=== PATIENT | male | born 1935 | race Caucasian/White ===

== ENCOUNTER → 2017-05-30 | Outpatient (CLI) | payer OTHER | LOC: FIMAGING 08:29 | DX: R29.2 Abnormal reflex (principal); M50.31 Other cervical disc degeneration, high cervical region; M46.92 Unspecified inflammatory spondylopathy, cervical region; M48.02 Spinal stenosis, cervical region; M46.93 Unspecified inflammatory spondylopathy, cervicothoracic region; M48.03 Spinal stenosis, cervicothoracic region ==

== ENCOUNTER 2017-09-25 21:13 | Emergency (ER) | payer OTHER ==
[2017-09-25] MEDS ORDERED: MAG HYDROX/AL HYDROX/SIMETH 30 ML UDCUP PO ONE (22:13)
[2017-09-25] MEDS ORDERED: LIDOCAINE 2% VISCOUS 15 ML UDCUP PO ONE (22:13)
--- NOTE | 2017-09-25 22:16 | EDPHY ---
H & P Time Seen by Provider: 09/25/17 21:50 HPI/ROS: CHIEF COMPLAINT: Pill stuck in my throat HISTORY OF PRESENT ILLNESS: Patient is an 82-year-old male who presents to the emergency department stating a pill got stuck in his throat. He describes the sensation of having a foreign body in his upper throat. He is able to swallow and handle his secretions. He is able to drink water. He describes mild discomfort. No shortness of breath or cough. No nausea or vomiting. No previous episodes of esophageal foreign body. REVIEW OF SYSTEMS: My complete review of systems is negative except as mentioned in the HPI. Past Medical/Surgical History: Includes hypercholesterolemia, hypothyroidism Smoking Status: Former smoker Physical Exam: 36.7, 115/70, 60, 16, 94% on room air GENERAL: Well-appearing, in no acute distress, alert. HEENT: Eyes normal to inspection, normal pharynx, no signs of dehydration. NECK: No thyromegaly, no lymphadenopathy, supple. No stridor. RESPIRATORY: Clear to auscultation bilaterally, no rales, rhonchi or wheezing. CVS: Regular rate and rhythm, no rubs, murmurs, or gallops. ABDOMEN: Soft, nontender, nondistended, no organomegaly. BACK: Normal to inspection, no CVA tenderness. SKIN: Normal color, no rash, warm, dry. No pallor. EXTREMITIES: No pedal edema, no calf tenderness, no Homans sign or cords, no joint swelling. NEURO/PSYCH: Alert and oriented x3, normal mood and affect, normal motor sensory exam. No obvious cranial nerve deficit. Constitutional: Initial Vital Signs Temperature (C) 36.7 C 09/25/17 21:25 Heart Rate 60 09/25/17 21:25 Respiratory Rate 16 09/25/17 21:25 Blood Pressure 115/70 09/25/17 21:25 O2 Sat (%) 94 09/25/17 21:25 O2 Delivery Mode Room Air Allergies/Adverse Reactions: No Known Allergies Allergy (Unverified 10/20/15 19:32) Home Medications: Medication Instructions Recorded Aspirin EC [Aspirin EC 81 mg (*)] 81 mg PO HS 10/20/15 Colestipol HCl [Colestid (*)] 1 gm PO HS 10/20/15 Cyanocobalamin [Vitamin B12 (*)] 100 mcg PO DAILY 10/20/15 Ezetimibe [Zetia 10 MG (*)] 10 mg PO DAILY 10/20/15 Folic Acid 100 mcg PO DAILY 10/20/15 Gabapentin [Neurontin 100 MG (*)] 300 mg PO HS 10/20/15 Glucosam/Chondr/Collagn/Hyalur 1 each PO BID 10/20/15 [Glucosamine & Chondroitin Cap] Levothyroxine [Synthroid 75 mcg 75 mcg PO HS 10/20/15 (*)] Niacin ER [Niaspan 1000 mg (*)] 2,000 mg PO HS 10/20/15 [place]-3 Fatty Acids [Fish Oil 1000 2,000 mg PO DAILY@18 10/20/15 mg (*)] [place]-3 Fatty Acids [Fish Oil 1000 3,000 mg PO DAILY 10/20/15 mg (*)] Gabapentin [Neurontin 300 MG (*)] 300 mg PO HS #0 cap 10/22/15 Glucosamine/Chondroitin 1 each PO BID #0 cap 10/22/15 [Glucosamine/Chondroitin (*)] Medical Decision Making ED Course/Re-evaluation: The patient was given a GI cocktail. He subsequently swallowed carbonated liquid. On recheck he felt like the obstruction had resolved. He has no more pain with swallowing. Initially after taking the GI cocktail he still felt as though the pill was lodged in his throat but he had no discomfort. He then felt as though the pill past. He has no complaints of shortness of breath. I discussed possible etiologies. I discussed an abrasion with symptoms resolving due to the GI cocktail. I also discussed the possibility of the pills still being stuck. He will follow up with ENT. He is given warnings prior to leaving. Differential Diagnosis: My differential includes but is not limited to foreign body sensation, food impaction, pill impaction, esophageal disruption - Data Points Medications Given: Discontinued Medications Al Hydroxide/Mg Hydroxide (Maalox Susp) 30 ml PO ONCE ONE Stop: 09/25/17 22:14 Last Admin: 09/25/17 22:20 Dose: 30 ml Lidocaine (Lidocaine 2% Viscous) 15 ml PO ONCE ONE Stop: 09/25/17 22:14 Last Admin: 09/25/17 22:20 Dose: 15 ml Departure - Departure Disposition: Home, Routine, Self-Care Clinical Impression: Esophageal foreign body Condition: Good Instructions: Esophageal Foreign Body (ED) Additional Instructions: Return with increasing pain, difficulty swallowing, shortness of breath, persistent coughing or any other concerns. Referrals: Abhishek Bailey MD [Primary Care Provider] - As per Instructions Maksim Wolf MD [Medical Doctor] - 3-4 days, if not improved
[2017-09-25 22:58] VITALS: BP 118/77
== END 2017-09-25 23:00 | disposition home or self-care (01) ==
DX: T18.108A Unspecified foreign body in esophagus causing other injury, initial encounter (principal); Z79.82 Long term (current) use of aspirin; Z87.891 Personal history of nicotine dependence; X58.XXXA Exposure to other specified factors, initial encounter

== ENCOUNTER 2018-05-13 16:13 | Inpatient (IN) | payer OTHER ==
[2018-05-13] MEDS ORDERED: NS 1,000 ML IV ONE (16:18)
--- NOTE | 2018-05-13 16:24 | EDPHY ---
H & P Time Seen by Provider: 05/13/18 16:21 HPI/ROS: CHIEF COMPLAINT: Head laceration HISTORY OF PRESENT ILLNESS: Patient is a 80-year-old man who fell outside of the store and hit his head. He has a laceration to his left forehead. It is unclear whether not he fainted or slipped. According to paramedics he is perseverating. No neck pain. Moving all extremities without difficulty. He was ambulatory at the scene. He does have a history of coronary artery disease on heart scan as well as prostate cancer. He is not on any blood thinners. He denies chest pain or shortness of breath. Severity: Moderate Modifying factors: None REVIEW OF SYSTEMS: Constitutional: denies: chills, fever, recent illness, recent injury EENTM: denies: blurred vision, double vision, nose congestion Respiratory: denies: cough, shortness of breath Cardiac: denies: chest pain, irregular heart rate, lightheadedness, palpitations Gastrointestinal/Abdominal: denies: abdominal pain, diarrhea, nausea, vomiting, blood streaked stools Genitourinary: denies: dysuria, frequency, hematuria, pain Musculoskeletal: See HPI Skin: See HPI Neurological: See HPI denies: headache, numbness, paresthesia, tingling, dizziness, weakness Hematologic/Lymphatic: denies: blood clots, easy bleeding, easy bruising Immunologic/allergic: denies: HIV/AIDS, transplant 10 systems reviewed and negative except as noted Vital signs reviewed normal Patient is alert not anxious or lethargic and in no distress No cervical collar in place HEAD: Laceration left forehead no raccoon eyes, no Randolph sign. NECK: is nontender and has painless range of motion, trachea is midline, EYES: pupils equal round reactive to light and accommodating, extraocular muscles are intact no palsy or entrapment, no subconjunctival hemorrhage ENT: Normal external inspection, airway intact, no dental or oral injuries, no clotted nasal blood, no septal hematoma, no hemotympanum CARDIOVASCULAR: heart sounds normal, not tachycardic or bradycardic, Chest is non-tender no rib tenderness no palpable fracture, no crepitus, no subcutaneous emphysema RESPIRATORY: no splinting, no paradoxical movements, gross sounds normal, no wheezes no rales no rhonchi, no respiratory distress ABDOMEN: Abdomen is nontender in all 4 quadrants no guarding no rebound, no distention, no hernias, no masses or bruits. GENITAL/RECTAL: Normal external inspection, Stable pelvis NEUROLOGIC/PSYCH: Slightly confused but oriented to person and place a day cranial nerves normal as assessed, face symmetrical, sensation normal, motor grossly normal, some perseveration, cranial nerves II through XII intact normal reflexes Brijesh Coma score: 14 SPEECH disoriented 4 MOTOR normal 6 SKIN: Laceration forehead no ecchymosis, nondiaphoretic. BACK: No CVA tenderness, no vertebral point tenderness, no muscle spasm normal range of motion EXTREMITIES: Atraumatic, pelvis stable, nontender able to bear weight, no pulse deficit, normal range of motion, normal color and temperature Source: Patient, EMS, Old records Exam Limitations: Clinical condition - Medical/Surgical History Hx Asthma: No Hx Chronic Respiratory Disease: No Hx Diabetes: No Hx Cardiac Disease: No Hx Renal Disease: No Hx Cirrhosis: No Hx Alcoholism: No Hx HIV/AIDS: No Hx Splenectomy or Spleen Trauma: No Other PMH: hypercholesteremia - Family History Significant Family History: No pertinent family hx - Social History Smoking Status: Former smoker Alcohol Use: None Constitutional: Initial Vital Signs Heart Rate 80 05/13/18 16:16 Blood Pressure 163/94 H 05/13/18 16:16 O2 Delivery Mode Room Air Allergies/Adverse Reactions: No Known Allergies Allergy (Unverified 10/20/15 19:32) Home Medications: Medication Instructions Recorded Aspirin EC [Aspirin EC 81 mg (*)] 81 mg PO HS 10/20/15 Colestipol HCl [Colestid (*)] 2 gm PO BID 10/20/15 Ezetimibe [Zetia 10 MG (*)] 10 mg PO DAILY 10/20/15 Levothyroxine [Synthroid 75 mcg 75 mcg PO HS 10/20/15 (*)] Niacin ER [Niaspan 1000 mg (*)] 2,000 mg PO HS 10/20/15 [place]-3 Fatty Acids [Fish Oil 1000 2,000 mg PO BID 10/20/15 mg (*)] C/E/Zn/Cu/OM3/DHA/EPA/LUT/ZEAX 2 each PO DAILY 05/13/18 [Preservision Areds 2 Softgel] Carbidopa/Levodopa 1.5 each PO TID@0630,12,5920 05/13/18 [Carbidopa-Levodopa 25-100 Tab] Cyanocobalamin [Vitamin B12 (*)] 1,000 mcg PO DAILY 05/13/18 Medical Decision Making - Diagnostics EKG Interpretation: An EKG obtained and was read and documented in trace view. Please see trace view for full reading and report. Junctional rhythm the rate of 68. No previous for comparison. Imaging: Discussed imaging studies w/ call taker Radiologist Procedures: Procedure: Laceration repair. Verbal consent was obtained from the patient. The 3 cm forehead laceration was anesthetized with 1% lidocaine with epi and bicarbonate locally infiltrated. The wound was irrigated copiously according to protocol, draped and explored to its base. It was approximately 1 cm deep. There were no deep structures involved. No tendon, nerve, vascular oozing. No foreign body was identified. The wound was repaired with deep sutures 2.0 Vicryl with a [id number] across the bleeding vessel as well as 9 superficial running sutures 5.0 Prolene. The wound repair was complex with multiple layers and margin revision and hemorrhage control. The procedure was performed by myself. A dressing was then placed with sterile gauze and bacitracin. ED Course/Re-evaluation: 4:30 p.m. Family is here and tells that the patient has Parkinson's and frequent dizzy spells. 5:30 p.m. Patient tolerated suture repair. Family is here. They state that they have never heard of any heart arrhythmia in the past. I spoke with Dr. Pace and will admit to the medical service. I have paged Cardiology as well as Trauma service because he is initially limited +. He seems to have isolated head injury. Discussed the case with Dr. Cronin who will come evaluate. Discussed the case with Dr. Valladares is who will consult. 6:12 p.m. I discussed the case Samson Romero who will admit. Differential Diagnosis: Partial list of the Differential diagnosis considered include but were not limited to; laceration, syncope, and although unlikely based on the history and physical exam, I also considered fracture, intracranial injury, neck injury , thoracic injury, extremity injury. - Data Points Laboratory Results: Laboratory Results 05/13/18 16:28 05/13/18 16:28 Medications Given: Acetaminophen (Tylenol) 650 mg PO Q4HRS PRN PRN Reason: Pain, Mild/Fever, Can Take PO Stop: 11/09/18 18:36 Last Admin: 05/14/18 09:09 Dose: 650 mg Aspirin Buffered (Aspirin Ec) 81 mg PO HS ADELIA Stop: 11/09/18 20:59 Last Admin: 05/13/18 21:29 Dose: 81 mg Carbidopa/Levodopa (Sinemet) 1.5 tab PO TID@0630,1200,1730 ADELIA Stop: 11/09/18 21:59 Last Admin: 05/14/18 13:05 Dose: 1.5 tab Colestipol HCl (Colestid) 2 gm PO BID@1000,2200 ADELIA Stop: 11/09/18 21:59 Last Admin: 05/14/18 10:21 Dose: 2 gm Ezetimibe (Zetia) 10 mg PO DAILY ADELIA Stop: 11/10/18 08:59 Last Admin: 05/14/18 08:41 Dose: 10 mg Levothyroxine Sodium (Synthroid) 75 mcg PO HS ADELIA Stop: 11/09/18 20:59 Last Admin: 05/13/18 21:29 Dose: 75 mcg Multivitamins/Minerals (Preservision Areds2 Formula) 2 each PO DAILY ADELIA Stop: 11/10/18 08:59 Last Admin: 05/14/18 08:41 Dose: 2 each Niacin (Niaspan) 2,000 mg PO HS ADELIA Stop: 11/09/18 20:59 Last Admin: 05/13/18 21:30 Dose: 2,000 mg Vitamin B Complex (Vitamin B12) 1,000 mcg PO DAILY ADELIA Stop: 11/10/18 08:59 Last Admin: 05/14/18 08:41 Dose: 1,000 mcg Discontinued Medications Sodium Chloride (Ns) 1,000 mls @ 0 mls/hr IV ONCE ONE; Wide Open PRN Reason: Protocol Stop: 05/13/18 16:19 Last Admin: 05/13/18 16:45 Dose: 1,000 mls Potassium Chloride/Sodium Chloride (Ns W/ 20 Kcl/L) 1,000 mls @ 75 mls/hr IV CONT ADELIA Stop: 11/09/18 18:44 Last Admin: 05/13/18 21:32 Dose: 1,000 mls Point of Care Test Results: Chemistry 05/13/18 16:33 POC Troponin I 0.00 ng/mL ng/mL (0.00-0.08) Departure - Departure Disposition: [facility] Inpatient Acute Clinical Impression: Junctional cardiac arrhythmia Forehead laceration Qualifiers: Encounter type: initial encounter Qualified Code(s): S01.81XA - Laceration without foreign body of other part of head, initial encounter Condition: Fair
[2018-05-13 16:33] LABS: PLATELET COUNT 193 10^3/uL (150-400)
[2018-05-13 16:47] LABS: INR 1.06 (0.83-1.16)
--- NOTE | 2018-05-13 16:56 | CPEKG ---
Test Reason : OPEN Blood Pressure : / mmHG Vent. Rate : 068 BPM Atrial Rate : 000 BPM P-R Int : 276 ms QRS Dur : 173 ms QT Int : 473 ms P-R-T Axes : 000 -83 073 degrees QTc Int : 504 ms Junctional rhythm Vent pre-excitat'n(WPW), left acces'y pathway Confirmed by Tomer Sanford ([id number]) on 05/13/2018 4:55:26 PM Referred By: Tomer Sanford Confirmed By:Tomer Sanford
[2018-05-13] MEDS ORDERED: ONDANSETRON DISINTEGRATING 4 MG TAB PO PRN (18:37)
[2018-05-13] MEDS ORDERED: oxyCODONE IR 5 MG TAB PO PRN (18:37)
[2018-05-13] MEDS ORDERED: ONDANSETRON 4 MG/2 ML VIAL IVP PRN (18:37)
[2018-05-13] MEDS ORDERED: NS W/ 20 KCl/L 1,000 ML IV SCH (18:45)
[2018-05-13] MEDS: ACETAMINOPHEN 325 MG TAB PO PRN (19:43)
--- NOTE | 2018-05-13 19:58 | GHP ---
DATE OF ADMISSION: 05/13/2018 REASON FOR ADMISSION: Syncope. HISTORY OF PRESENT ILLNESS: Mr. Herron is an 83-year-old male who was in [place] today and fell and struck his head. He does not recall a specific reason for falling. He hit his head, regained c onsciousness, was brought to the ER for evaluation. On the ER gurney, he is currently comfortable. Sutures to his left temporoparietal region have been placed. He denies neck pain, shortness of breat h, chest pain or palpitations. He struck his elbow, but this seems to be minimally symptomatic at th is point. His daughters note he has had a couple of lightheaded or dizzy spells over the past week o r so. He has not had new medication changes. He has been on the same Parkinson's Sinemet, carbidopa -levodopa combination for, he would say, the past year. He typically walks 45-[address] many days per week without much symptomatology until perhaps the last couple of days, if not w mentasta. He has not had chest pain. No GI distress. No change in oral hydration status. He has been m aking a marked effort to increase his overall water consumption. Urinary output has been brisk. No other unusual features. PAST MEDICAL HISTORY: Notable for Parkinson disease with treatment for the past year, history of div erticulitis, high cholesterol, allergic rhinitis, hypothyroid, erectile difficulties, atherosclerosis by heart scan, history of bronchitis, vitamin D deficiency, microscopic hematuria, history of prosta te cancer, intermittent low back pain and arthritis, AAA without rupture. CURRENT MEDICATIONS: 2000 mg niacin daily, Zetia 10 mg daily, colchicine p.r.n. gout, Sinemet 10/100 1.5 tablets three times daily, vitamin D 5000 units daily, aspirin 81 mg daily, fish oil 2 g twice a day, levothyroxine 75 mcg daily, B12 1000 mcg p.o. daily, multivitamins. SURGICAL HISTORY: Knee replacement 2009, prostatectomy 2010, rotator cuff repair 2004, hernia repair 2011, prostatectomy perhaps was 2006 as opposed to 2010. Prior hospitalization for cellulitis in involving left lower extremity. He has 4 living children, 3 in the area. He consumes coffee on a regular basis. He is active with walking. 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 He does not smoke. FAMILY HISTORY: Father with known heart disease. Mother , hypertension, stroke. IMMUNIZATIONS: Up to date, including flu shot this year. REVIEW OF SYSTEMS: GENERAL: He denies headache aside from area in question from fall. HEENT: No h ead pains. No visual changes. Underlying hearing loss is a known challenge, which is treated with h earing aids with good success. Chronic nasal and sinus symptoms are unchanged. No acute dental cond itions. NECK: No change with difficulty with moving his neck. LUNGS: He denies shortness of breat h, cough, wheeze or congestion. HEART: He denies awareness of chest pain, palpitations, or cardiac rhythm irregularity. ABDOMEN: No nausea or vomiting. No stomach pain. No bowel habit changes. : No acute urinary changes. EXTREMITIES: Left elbow acutely sore from fall. Otherwise, no acute m usculoskeletal complaints. SKIN: No recent skin abnormality aside from trauma from the fall today. NEUROLOGIC: He has not had peculiar swelling, tremor has been improved, as well as ambulation ease with the effect of the Sinemet, which is corroborated by his daughters. PHYSICAL EXAM: VITAL SIGNS: Initial blood pressure 163/94, 2nd check 144/78, heart rate in the 60s to 70s, respiratory rate 16, saturation 97% on room air, temperature 36.6. GENERAL: Pleasant male, somewhat hard of hearing. Resting comfortably on the gurney. HEENT: He has evidence of suture repa ir of laceration to left temporal region. He has evidence of prior cataract surgery. Pupils otherwi se symmetric. Oropharynx benign. NECK: Neck range of motion is intact. LUNGS: Clear without crac kles, wheeze or congestion. HEART: Regular rhythm. No murmur appreciated in the ER gurney setting. Rhythm does vacillate between normal PQRST sinus rhythm to a junctional rhythm with brief episode o f tachycardia briefly captured on the monitor. ABDOMEN: Positive bowel sounds. Soft, nontender, no ndistended. SKIN: Warm, dry, intact. EXTREMITIES: Trace edema to lower extremities. NEUROLOGIC: He follows commands without difficulty. No evidence of weakness. LABORATORY DATA: CT head and neck without acute abnormality. No evidence of intracranial hemorrhage . EKG junctional rhythm was captured. Metabolic panel grossly unremarkable. Magnesium level has no t yet been checked. CBC is unremarkable. INR 1.06, ethanol level undetectable. ASSESSMENT: 1. Syncopal episode. Trauma consult was had by Dr. Cronin. Sutures have been placed. No other unto varela findings noted. We will follow. 2. Syncopal episode. Suspect cardiac dysrhythmia, given findings on EKG, observation monitor and de scription of recent lightheaded or dizzy symptoms over the past week or so. Will admit, place on tel emetry. We will obtain an echocardiogram. I have notified Dr. Acevedo who will see the patient in morning unless his symptoms change tonight. 3. Hyperlipidemia. Continue his current regimen. 4. Atherosclerosis. No evidence of overt symptomatology based on exertion. 5. Parkinson's, medicines have been stable. Continue with his current medication regimen for now. /[id number]/MODL
[2018-05-13] MEDS: CARBIDOPA/LEVODOPA 25 MG/100 MG TAB PO SCH (20:37)
[2018-05-13] MEDS: LEVOTHYROXINE 75 MCG TAB PO SCH (21:29)
[2018-05-13] MEDS: ASPIRIN EC 81 MG TAB PO SCH (21:29)
[2018-05-13] MEDS: COLESTIPOL HCL 1 GM TAB PO SCH (21:30)
[2018-05-13] MEDS: NIACIN ER 1000 MG TAB.ER PO SCH (21:30)
[2018-05-14] MEDS: ACETAMINOPHEN 325 MG TAB PO PRN ×2 (03:17→09:09)
[2018-05-14 04:54] LABS: PLATELET COUNT 179 10^3/uL (150-400)
--- NOTE | 2018-05-14 06:07 | GCON ---
DATE OF CONSULTATION: 05/13/2018 CHIEF COMPLAINT: Scalp laceration. HISTORY OF PRESENT ILLNESS: The patient is an 83 year old who had started being worked up for dizzin ess times the past week. He has had 2 falls. He had an episode of syncope today and struck his head on concrete. PAST MEDICAL HISTORY: Parkinson disease, diverticulitis, hyperlipidemia, hypothyroid, AAA without ru pture, and a history of prostate cancer. PAST SURGICAL HISTORY: Knee replacement, prostatectomy, rotator cuff repair, and hernia repair. SOCIAL HISTORY: He has 4 kids. 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 Does not smoke. FAMILY HISTORY: Stroke, hypertension, and heart disease. REVIEW OF SYSTEMS: No changes in vision. He does have hearing loss. No problems with shortness of breath, chest pain, or palpitations. No nausea or vomiting. No abdominal pain. No long bone defici ts. NEUROLOGIC: He does have issues with Parkinson's. PHYSICAL EXAMINATION: VITAL SIGNS: 36.6, 60, 144/78, 16, and 97%. GENERAL: Pleasant, well-nourish ed, and well-groomed man, sitting up on the gurney. Two of his daughters at the bedside. HEENT: Sut ure repair on the left temporal region. Sclerae cloudy. No midface instability. No otorrhea. No r hinorrhea. NECK: No posterior cervical spine tenderness. Full range of motion. LUNGS: Clear to a uscultation. No increased work of breathing. CARDIAC: Regular rate. No peripheral edema. ABDOMEN : Bowel sounds are present. Soft and nontender. SKIN: Warm and dry. EXTREMITIES: 5/5 strength, upper and lower extremities. NEUROLOGIC: Grossly intact. IMPRESSION AND PLAN: An 83 year old with a syncopal episode and sutures to the parietal area. We wi ll obtain a tertiary survey tomorrow. Sutures out in 1 week. PT, OT, and ST. /[id number]/MODL
[2018-05-14] MEDS: CARBIDOPA/LEVODOPA 25 MG/100 MG TAB PO SCH ×3 (06:18→17:42)
[2018-05-14] MEDS: EZETIMIBE 10 MG TAB PO SCH (08:41)
[2018-05-14] MEDS: CYANO/VITAMIN B12 1000 MCG TAB PO SCH (08:41)
[2018-05-14] MEDS: PRESERVISION AREDS2 FORMULA EYE VIT 1 EACH PO SCH (08:41)
--- NOTE | 2018-05-14 08:43 | PDMN ---
Medical Necessity [place] [facility] [place]1day: 83 yo w/ syncope/fall requiring suture to head by trauma. No other injuries. Suspect syncope r/t cardiac dysrhythmia w/ abn EKG/junctional rhythm. Cardiac consult and cont tele monitoring ordered. PT/OT consults pending. Pt on cont IVF. Anticipate>2MN for new syncope w/ cardiac findings requiring tele monitoring and ongoing dx testing and tx of the above. Hx Parkinsons, diverticulitis, hypothyroid, atherosclerosis, prostate ca, AAA w/o rupture, cellulitis LLE 2015
--- NOTE | 2018-05-14 09:00 | SOAPPROG ---
SOAP Progress Note Assessment/Plan: Assessment: Plan: 05/14/18 09:00 syncope likely due to dysrhythmia, cards consult pending. Echo done, interpretation pending scalp lac--stable superficial pain only PD-stable, continue current meds Subjective: Sarthak feels exhausted from not sleeping. No sx until getting up this am with some lightheadedness going to the bathroom. Yesterday's syncope was a complete surprise to the patient. Objective: Vital Signs Temp Pulse Resp BP Pulse Ox 36.4 C 65 18 120/73 96 05/14/18 08:00 05/14/18 08:00 05/14/18 08:00 05/14/18 08:00 05/14/18 08:00 Laboratory Results 05/14/18 03:15 05/14/18 03:15 05/13/18 05/14/18 05/15/18 05:59 05:59 05:59 Intake Total 150 Balance 150 PT 14.0 SEC (12.0-15.0) 05/13/18 16:28 INR 1.06 (0.83-1.16) 05/13/18 16:28 Gen: NAD Lungs: CTAB Heart: no murmur, regular renuka at bedside, tele with sinus to a junctional type rhythm on off Abd + bs ,soft LE's trace edema--stable left scalp--sutures with moderate hematoma k+ 4.2 Mg 1.6 ICD10 Worksheet Patient Problems: Problems Problem Status Onset Forehead laceration Acute Junctional cardiac arrhythmia Acute Cellulitis Acute
--- NOTE | 2018-05-14 09:35 | TRAUMAPN ---
Trauma Progress Note Assessment/Plan: 83yo M s/p mech fall c L sided head lac s/p repair TERTIARY EXAM Neuro: Moving all extremities, nonfocal exam. Head lack is clean dry and intact. Pulm: Stable on room air, no increased work of breathing CV: Hemodynamically stable. Echocardiogram this morning. Arrhythmia workup per Medicine and Cardiology Abdomen: Soft nondistended nontender Renal: Voiding Heme: Stable Id: Afebrile Ortho: No fractures Dispo: No new injuries identified on tertiary exam. Trauma surgery to sign off. He is welcome to follow up with us in the clinic in 10 days from placement for removal. Subjective: didnt sleep well, "lots of tubes" Objective: Vital Signs Temp Pulse Resp BP Pulse Ox 36.4 C 65 18 120/73 96 05/14/18 08:00 05/14/18 08:00 05/14/18 08:00 05/14/18 08:00 05/14/18 08:00 Laboratory Results 05/14/18 03:15 05/14/18 03:15 05/13/18 05/14/18 05/15/18 05:59 05:59 05:59 Intake Total 150 Balance 150 PT 14.0 SEC (12.0-15.0) 05/13/18 16:28 INR 1.06 (0.83-1.16) 05/13/18 16:28
[2018-05-14] MEDS: COLESTIPOL HCL 1 GM TAB PO SCH (10:21)
--- NOTE | 2018-05-14 10:33 | SOAPPROG ---
SOAP Progress Note Assessment/Plan: Assessment: Plan: 05/14/18 09:00 syncope likely due to dysrhythmia, cards consult pending. Echo done, interpretation pending scalp lac--stable superficial pain only PD-stable, continue current meds 05/14/18 10:[address] Shanna Ramirez neuro--would like MRI c-spine and MRA head and neck to eval posterior circulation prior to pacer (if needed) Objective: Vital Signs Temp Pulse Resp BP Pulse Ox 36.4 C 65 18 120/73 96 05/14/18 08:00 05/14/18 08:00 05/14/18 08:00 05/14/18 08:00 05/14/18 08:00 Laboratory Results 05/14/18 03:15 05/14/18 03:15 05/13/18 05/14/18 05/15/18 05:59 05:59 05:59 Intake Total 150 Balance 150 PT 14.0 SEC (12.0-15.0) 05/13/18 16:28 INR 1.06 (0.83-1.16) 05/13/18 16:28 ICD10 Worksheet Patient Problems: Problems Problem Status Onset Forehead laceration Acute Junctional cardiac arrhythmia Acute Cellulitis Acute
--- NOTE | 2018-05-14 10:35 | ECHO ---
[email or web address] [address] [address] Main: [phone] Fax: [email or web address] Echocardiogram Name: ANNA MARIE LYNCH MR#: [id number] Study Date: 05/14/2018 Study Time: 07:28 AM Date of : 1935 Age: 83 year(s) Height: 182.9 cm (72 in.) Weight: 77.11 kg (170 lb.) BSA: 1.99 m2 Gender: Male Examination: Echo Indication: Cardiac: syncope Image Quality: Adequate Contrast: Requested by: John Romero BP: 126 mmHg/70 mmHg Heart Rate: Rhythm: Indication: Cardiac: syncope Procedure Staff Compliance Counsel: Jodi Branham [facility] Reading Physician: Oli Whitten MD Requesting Provider: Conclusions: Normal size left ventricle. Mild concentric LV hypertrophy. Normal global systolic LV function. EF is 57 %. Normal diastolic LV function. Mild mitral valve regurgitation is present. Calcified papillary muscle. Aortic sclerosis is present. Trivial aortic valve regurgitation. The tricuspid valve is normal in appearance and function. Moderate tricuspid regurgitation is present. Right ventricular systolic pressure measures 32mmHg. Measurements: Chambers Valvular Assessment AV/MV Valvular Assessment TV/PV Normal Normal Normal Name Value Range Name Value Range Name Value Range Ao Stephany (2D): 3.2 cm (1.4 cm-2.6 AV Vmax: 1.32 m/s (1 m/s-1.7 TR Vmax: 2.61 mm/s ( - ) cm) m/s) TR PGmax: 27 mmHg ( - ) IVSd (2D): 1.2 cm (0.6 cm-1.1 AV maxP mmHg ( - ) syst. PAP: 32 mmHg ( - ) cm) AV meanP mmHg ( - ) PV Vmax: 1.57 m/s (0.6 m/s-0.9 LVDd (2D): 4.6 cm (4.2 cm-5.9 HAILEY (VTI): 2.0 cm ( - ) m/s) cm) MV E Vmax: 0.43 m/s ( - ) PV PGmax: 10 mmHg ( - ) LVDs (2D): 3.0 cm (2.1 cm-4 MV A Vmax: 0.62 m/s ( - ) cm) MV E/A: 0.69 ( - ) LVPWd (2D): 1.2 cm (0.6 cm-1 cm) MV PHT: 0.102 s ( - ) LVOTd 2.1 cm 2.1 cm mm MVA (PHT): 2.2 s ( - ) LVEF (BP): 57 % (>=55 %) RVDd(2D): 3.7 cm (1.9 cm-3.8 cmmm) Patient: ANNA MARIE LYNCH Study Date: 05/14/2018 Page 1 of 2 07:28 AM Continued Measurements: Chambers Valvular Assessment AV/MV Valvular Assessment TV/PV Name Value Name Value Name Value LADs: 3.7 cm MV DecTime: 282 m/s CVP (est.): 5 mmHg LADs Lon.7 cm MV E' Septal: 0.07 m/s LA Area: 23.0 cm2 MV E/E' Septal: 6.60 LA Volume: 65 ml MV E/E' Lateral: 6.60 LA Volume Index: 32.7 ml/m2 RA Area: 22.3 cm2 Additional Vessels Name Value Ao Ascendin.4 cm Inferior Vena Cava: 1.4 cm Findings: Left Ventricle: Normal size left ventricle. Mild concentric LV hypertrophy. Normal global systolic LV function. EF is 57 %. Normal diastolic LV function. Right Ventricle: Normal size right ventricle. Normal RV function. Left Atrium: The left atrium is normal in size. Right Atrium: The right atrium is mildly dilated. Mitral Valve: The mitral valve is normal in appearance and function. Mild mitral valve regurgitation is present.No mitral stenosis is present. Calcified papillary muscle. Aortic Valve: The aortic valve is tri-leaflet. Aortic sclerosis is present. Trivial aortic valve regurgitation. No aortic valve stenosis is present. Tricuspid Valve: The tricuspid valve is normal in appearance and function. Moderate tricuspid regurgitation is present. The pulmonary artery pressure is normal. Right ventricular systolic pressure measures 32mmHg. Pulmonic Valve: The pulmonic valve is normal in appearance and function. Trivial pulmonic valve regurgitation. Aorta: The aorta is normal. Normal size aortic root measuring 3.2 cm. Normal size ascending aorta measuring 3.4 cm. IVC: The IVC is normal sized. Pericardium: No pericardial effusion. No pleural effusion. (No Signature Object) Patient: ANNA MARIE LYNCH Study Date: 05/14/2018 Page 2 of 2 07:28 AM [id number]
--- NOTE | 2018-05-14 11:30 | PDCARCONS ---
Cardiology Consult Reason for Consult: Syncope. Chief Complaint: Syncope. Requesting Physician: Dr. Abhishek Bailey. History of Present Illness: This is an 83-year-old male who at his baseline is fairly healthy. He has no prior cardiovascular history. His cardiac risk factor profile includes his age , history of hyperlipidemia and prior tobacco use. He is admitted to the hospital following a syncopal event. He states that last week he had 2 or 3 episodes of mild lightheadedness. These tended to be transient and were not associated with loss of consciousness. On at least 1 occasion he did "catch himself"prior to falling. Yesterday he awakened feeling well. He went out to lunch with his grandson and then after dropping his grandson off decided to go over to the [employer]. He remembers driving to the market. He does not quite remember parking the car or walking into the supermarket. Apparently, he experienced episode where he lost consciousness at the entry way to the market. There was no witnessed seizure activity or loss of bowel or bladder control. He did strike his left forehead and apparently sustained a concussion as well as a laceration requiring sutures. EMS was contacted he was transported to the emergency department here. On arrival here was hemodynamically stable with a blood pressure of 165 mmHg. There is an ECG from yesterday at 4:48 p.m.. This indicates an accelerated idioventricular rhythm with a rate of 68 beats per minute. As result he was placed on telemetry and monitored overnight. He has remained stable without recurrent symptoms. On telemetry is been in sinus rhythm. There are occasional PVCs with a compensatory pause which on occasions has elicited a wide complex, self-limited, escape rhythm. He has not had any episodes of ventricular tachycardia. There is no evidence of high-grade AV block or complex atrial arrhythmias. In talking to him about this he states he has felt well up until recently. He has not had any fever, chills or sweats. He notes no diarrhea, melena, hematochezia, nausea or vomiting. He has been stable in his medications now for well over a year with no recent changes. He does have Parkinson's disease which is followed through [facility]. Apparently, he has not had significant autonomic dysfunction identified. His never had prior loss of consciousness. Approximately 25 years ago he did have an episode of transient global amnesia. History Information - Allergies/Home Medication List Allergies/Adverse Reactions: No Known Allergies Allergy (Unverified 10/20/15 19:32) Home Medications: Aspirin EC [Aspirin EC 81 mg (*)] 81 mg PO HS 10/20/15 [Last Taken 05/12/18] Colestipol HCl [Colestid (*)] 2 gm PO BID 10/20/15 [Last Taken 05/13/18 09:00] Ezetimibe [Zetia 10 MG (*)] 10 mg PO DAILY 10/20/15 [Last Taken 05/13/18] Levothyroxine [Synthroid 75 mcg (*)] 75 mcg PO HS 10/20/15 [Last Taken 05/12/18] Niacin ER [Niaspan 1000 mg (*)] 2,000 mg PO HS 10/20/15 [Last Taken 05/12/18] [place]-3 Fatty Acids [Fish Oil 1000 mg (*)] 2,000 mg PO BID 10/20/15 [Last Taken 05/13/18 09:00] C/E/Zn/Cu/OM3/DHA/EPA/LUT/ZEAX [Preservision Areds 2 Softgel] 2 each PO DAILY [Last Taken 05/13/18] Carbidopa/Levodopa [Carbidopa-Levodopa 25-100 Tab] 1.5 each PO TID@0630,12,1730 05/13/18 [Last Taken 05/13/18 12:00] Cyanocobalamin [Vitamin B12 (*)] 1,000 mcg PO DAILY 05/13/18 [Last Taken ] Past Medical History: - Social History Smoking Status: Former smoker Physical Exam Physical Exam: Temp Pulse Resp BP Pulse Ox 36.4 C 65 18 120/73 96 05/14/18 08:00 05/14/18 08:00 05/14/18 08:00 05/14/18 08:00 05/14/18 08:00 Lab and Imaging 05/14/18 03:15 05/14/18 03:15 WBC 8.94 10^3/uL (3.80-9.50) 05/14/18 03:15 RBC 4.38 10^6/uL (4.40-6.38) L 05/14/18 03:15 Hgb 14.2 g/dL (13.7-17.5) 05/14/18 03:15 Hct 41.2 % (40.0-51.0) 05/14/18 03:15 MCV 94.1 fL (81.5-99.8) 05/14/18 03:15 MCH 32.4 pg (27.9-34.1) 05/14/18 03:15 MCHC 34.5 g/dL (32.4-36.7) 05/14/18 03:15 RDW 13.0 % (11.5-15.2) 05/14/18 03:15 Plt Count 179 10^3/uL (150-400) 05/14/18 03:15 MPV 10.1 fL (8.7-11.7) 05/14/18 03:15 Neut % (Auto) 70.3 % (39.3-74.2) 05/14/18 03:15 Lymph % (Auto) 15.4 % (15.0-45.0) 05/14/18 03:15 [place] % (Auto) 10.6 % (4.5-13.0) 05/14/18 03:15 Eos % (Auto) 2.9 % (0.6-7.6) 05/14/18 03:15 Baso % (Auto) 0.6 % (0.3-1.7) 05/14/18 03:15 Nucleat RBC Rel Count 0.0 % (0.0-0.2) 05/14/18 03:15 Absolute Neuts (auto) 6.28 10^3/uL (1.70-6.50) 05/14/18 03:15 Absolute Lymphs (auto) 1.38 10^3/uL (1.00-3.00) 05/14/18 03:15 Absolute Monos (auto) 0.95 10^3/uL (0.30-0.80) H 05/14/18 03:15 Absolute Eos (auto) 0.26 10^3/uL (0.03-0.40) 05/14/18 03:15 Absolute Basos (auto) 0.05 10^3/uL (0.02-0.10) 05/14/18 03:15 Absolute Nucleated RBC 0.00 10^3/uL (0-0.01) 05/14/18 03:15 Immature Gran % 0.2 % (0.0-1.1) 05/14/18 03:15 Immature Gran # 0.02 10^3/uL (0.00-0.10) 05/14/18 03:15 PT 14.0 SEC (12.0-15.0) 05/13/18 16:28 INR 1.06 (0.83-1.16) 05/13/18 16:28 APTT 29.4 SEC (23.0-38.0) 05/13/18 16:28 Sodium 139 mEq/L (135-145) 05/14/18 03:15 Potassium 4.2 mEq/L (3.5-5.2) 05/14/18 03:15 Chloride 108 mEq/L (97-110) 05/14/18 03:15 Carbon Dioxide 26 mEq/l (22-31) 05/14/18 03:15 Anion Gap 5 mEq/L (6-14) L 05/14/18 03:15 BUN 15 mg/dL (7-23) 05/14/18 03:15 Creatinine 0.9 mg/dL (0.7-1.3) 05/14/18 03:15 Estimated GFR > 60 05/14/18 03:15 Glucose 94 mg/dL (70-100) 05/14/18 03:15 Calcium 8.8 mg/dL (8.5-10.4) 05/14/18 03:15 Magnesium 1.6 mg/dL (1.6-2.3) 05/13/18 18:37 POC Troponin I 0.00 ng/mL (0.00-0.08) 05/13/18 16:33 NT-Pro-B Natriuret Pep 323 pg/mL (0-450) 05/13/18 18:37 TSH 3.950 uIU/mL (0.465-4.680) 05/13/18 16:30 Free T4 1.33 ng/dL (0.59-2.19) 05/13/18 16:30 Free T3 3.57 pg/mL (2.77-5.27) 05/13/18 16:30 Ethyl Alcohol < 10 mg/dL (0-10) 05/13/18 16:28
--- NOTE | 2018-05-14 11:44 | PDCARCONS ---
Cardiology Consult Reason for Consult: Syncope. Chief Complaint: Syncope. Requesting Physician: Dr. Bailey. History of Present Illness: This is a pleasant 83-year-old male seen in consultation on the progressive care unit. His baseline he is very healthy individual and is very active. Likes to walk at least 45 min a day and tries to do so with a brisk pace. He is usually asymptomatic. He has no vascular disease history. His cardiac risk factor profile in addition to his age gender is significant for dyslipidemia with an elevated HDL per his report and prior tobacco use. He was admitted yesterday after experienced a syncopal event. He states last week he had 2 or 3 episodes of lightheadedness without jennifer syncope. On at least 1 occasion he had to catch himself before he thought he might fall. Yesterday he awakened feeling well. He went about his normal daily activities. He took his grandson to lunch. At that point after dropping his grandson off he decided to go over to the supermarket. Apparently, he does not remember parking the car prior to entering the supermarket. He had an episode where he fell and struck his head at the entry to the supermarket. He sustained a head laceration with possible concussion. The next thing that he remembers is being in the emergency department. There was no loss of bowel or bladder control with this event. No seizure activity was witnessed. He has never had a prior event. He gives no his recent history of chest discomfort or exertional dyspnea. There is no history of DVT, PE or calf swelling/tenderness. He denies fever, chills and sweats. There is no history of nausea, vomiting or diarrhea. He was brought to the emergency department via EMS and on arrival to the emergency department he was hemodynamically stable with a systolic blood pressure above 160 mmHg. There is an ECG timed 4:48 p.m. From yesterday. This indicates an accelerated idioventricular rhythm at 60 beats per minute with a right bundle anterior fascicular block morphology suggesting origination in the posterior basal aspect of the left ventricle. Overnight he has been monitored on telemetry. He has been in sinus rhythm with occasional PVCs with post PVC compensatory pauses which have occasionally elicited a similar rhythm as the 12 lead. He has not had any further episodes of dizziness, lightheadedness or jennifer loss of consciousness. Initial cardiac enzymes were normal. He had an echocardiogram done earlier today which indicated a normal ejection fraction without wall motion abnormalities and associated age-related valvular changes. His major comorbidity includes a history of Parkinson's disease. Per his report this is managed through [facility]. He denies a history of dysautonomia in conjunction with his parkinsonism. He notes that he has not had any medication changes over the last calendar year. History Information - Allergies/Home Medication List Allergies/Adverse Reactions: No Known Allergies Allergy (Unverified 10/20/15 19:32) Home Medications: Aspirin EC [Aspirin EC 81 mg (*)] 81 mg PO HS 10/20/15 [Last Taken 05/12/18] Colestipol HCl [Colestid (*)] 2 gm PO BID 10/20/15 [Last Taken 05/13/18 09:00] Ezetimibe [Zetia 10 MG (*)] 10 mg PO DAILY 10/20/15 [Last Taken 05/13/18] Levothyroxine [Synthroid 75 mcg (*)] 75 mcg PO HS 10/20/15 [Last Taken 05/12/18] Niacin ER [Niaspan 1000 mg (*)] 2,000 mg PO HS 10/20/15 [Last Taken 05/12/18] [place]-3 Fatty Acids [Fish Oil 1000 mg (*)] 2,000 mg PO BID 10/20/15 [Last Taken 05/13/18 09:00] C/E/Zn/Cu/OM3/DHA/EPA/LUT/ZEAX [Preservision Areds 2 Softgel] 2 each PO DAILY [Last Taken 05/13/18] Carbidopa/Levodopa [Carbidopa-Levodopa 25-100 Tab] 1.5 each PO TID@0630,12,1730 05/13/18 [Last Taken 05/13/18 12:00] Cyanocobalamin [Vitamin B12 (*)] 1,000 mcg PO DAILY 05/13/18 [Last Taken ] Past Medical History: Parkinson's disease, hyperlipidemia, CAD identified by coronary calcium score, osteoarthritis with previous knee replacement surgery, prostate cancer status post TURP, history of transient global amnesia approximately 25 years ago, hypothyroidism, allergic rhinitis, erectile dysfunction, abdominal aortic aneurysm without details specified in the chart. - Surgical History Additional surgical history: Previous total knee arthroplasty, prostate surgery , rotator cuff repair, history of inguinal hernia repair. - Family History Positive for: non-pertinent - Social History Smoking Status: Former smoker (Quit 25 years ago) Alcohol Use: Occasionally (He is active. He likes to exercise predominantly by hiking and walking which he does several times a week. He is and accompanied by his . They have 4 children together.) Drug Use: None Physical Exam Physical Exam: Temp Pulse Resp BP Pulse Ox 36.4 C 65 18 120/73 96 05/14/18 08:00 05/14/18 08:00 05/14/18 08:00 05/14/18 08:00 05/14/18 08:00 Constitutional: no apparent distress, appears nourished, not in pain Eyes: PERRL, anicteric sclera, EOMI Ears, Nose, Mouth, Throat: moist mucous membranes, hearing normal, ears appear normal, no oral mucosal ulcers Cardiovascular: regular rate and rhythym, no murmur, rub, or gallop, No edema Peripheral Pulses: 2+: carotid (R), carotid (L) Respiratory: no respiratory distress, no rales or rhonchi, clear to auscultation Gastrointestinal: normoactive bowel sounds, soft, non-tender abdomen, no palpable masses Genitourinary: no bladder fullness, no bladder tenderness Skin: warm, normal color, no rashes or abrasions, no fluctuance, no induration, No mottled Musculoskeletal: full muscle strength, no muscle tenderness, normal joint ROM, no joint effusions Psychiatric: interacting appropriately, not anxious, not encephalopathic, thought process linear Lymph, Heme, Immunologic: no cervical LAD, no supraclavicular LAD Lab and Imaging 05/14/18 03:15 05/14/18 03:15 WBC 8.94 10^3/uL (3.80-9.50) 05/14/18 03:15 RBC 4.38 10^6/uL (4.40-6.38) L 05/14/18 03:15 Hgb 14.2 g/dL (13.7-17.5) 05/14/18 03:15 Hct 41.2 % (40.0-51.0) 05/14/18 03:15 MCV 94.1 fL (81.5-99.8) 05/14/18 03:15 MCH 32.4 pg (27.9-34.1) 05/14/18 03:15 MCHC 34.5 g/dL (32.4-36.7) 05/14/18 03:15 RDW 13.0 % (11.5-15.2) 05/14/18 03:15 Plt Count 179 10^3/uL (150-400) 05/14/18 03:15 MPV 10.1 fL (8.7-11.7) 05/14/18 03:15 Neut % (Auto) 70.3 % (39.3-74.2) 05/14/18 03:15 Lymph % (Auto) 15.4 % (15.0-45.0) 05/14/18 03:15 [place] % (Auto) 10.6 % (4.5-13.0) 05/14/18 03:15 Eos % (Auto) 2.9 % (0.6-7.6) 05/14/18 03:15 Baso % (Auto) 0.6 % (0.3-1.7) 05/14/18 03:15 Nucleat RBC Rel Count 0.0 % (0.0-0.2) 05/14/18 03:15 Absolute Neuts (auto) 6.28 10^3/uL (1.70-6.50) 05/14/18 03:15 Absolute Lymphs (auto) 1.38 10^3/uL (1.00-3.00) 05/14/18 03:15 Absolute Monos (auto) 0.95 10^3/uL (0.30-0.80) H 05/14/18 03:15 Absolute Eos (auto) 0.26 10^3/uL (0.03-0.40) 05/14/18 03:15 Absolute Basos (auto) 0.05 10^3/uL (0.02-0.10) 05/14/18 03:15 Absolute Nucleated RBC 0.00 10^3/uL (0-0.01) 05/14/18 03:15 Immature Gran % 0.2 % (0.0-1.1) 05/14/18 03:15 Immature Gran # 0.02 10^3/uL (0.00-0.10) 05/14/18 03:15 PT 14.0 SEC (12.0-15.0) 05/13/18 16:28 INR 1.06 (0.83-1.16) 05/13/18 16:28 APTT 29.4 SEC (23.0-38.0) 05/13/18 16:28 Sodium 139 mEq/L (135-145) 05/14/18 03:15 Potassium 4.2 mEq/L (3.5-5.2) 05/14/18 03:15 Chloride 108 mEq/L (97-110) 05/14/18 03:15 Carbon Dioxide 26 mEq/l (22-31) 05/14/18 03:15 Anion Gap 5 mEq/L (6-14) L 05/14/18 03:15 BUN 15 mg/dL (7-23) 05/14/18 03:15 Creatinine 0.9 mg/dL (0.7-1.3) 05/14/18 03:15 Estimated GFR > 60 05/14/18 03:15 Glucose 94 mg/dL (70-100) 05/14/18 03:15 Calcium 8.8 mg/dL (8.5-10.4) 05/14/18 03:15 Magnesium 1.6 mg/dL (1.6-2.3) 05/13/18 18:37 POC Troponin I 0.00 ng/mL (0.00-0.08) 05/13/18 16:33 NT-Pro-B Natriuret Pep 323 pg/mL (0-450) 05/13/18 18:37 TSH 3.950 uIU/mL (0.465-4.680) 05/13/18 16:30 Free T4 1.33 ng/dL (0.59-2.19) 05/13/18 16:30 Free T3 3.57 pg/mL (2.77-5.27) 05/13/18 16:30 Ethyl Alcohol < 10 mg/dL (0-10) 05/13/18 16:28 Visualized and Interpreted Chest x-ray results: No Chest X-ray Interpretation: no infiltrate Visualized and Interpreted imaging results: Yes Interpretation: See HPI Telemetry: See HPI Echocardiogram: See HPI A/P Assessment: This is an 83-year-old male who is currently admitted to the hospital following an episode of syncope yesterday. His history is interesting in the fact that there appears to be a component of both retrograde and antegrade amnesia associated with the event which raises the question of a possible seizure. This is unusual for cardiogenic syncope however may be related to his history of head trauma. His prior history of Parkinson's disease also tends to the cloud the picture as he may have significant dysautonomia contributing to his episode of loss of consciousness. He did have an identified arrhythmia in the form of what appears to be an accelerated idioventricular rhythm at 68 beats per minute. This may have been causative however we have not seen associated hypotension with this event. This also raises the question of underlying ischemic heart disease and previous infarction leading to the possibility of a rapid ventricular arrhythmia contributing to his loss of consciousness. His cardiac enzymes thus far have been negative. Plan: 1. I have ordered an electrocardiogram. I would like to evaluate his ECG while he is in sinus rhythm. 2. I have consulted Neurology. Specifically I would like their comments on whether not they think that these events might be related to dysautonomia or possible seizure. 3. In light of his accelerated idioventricular rhythm and cardiac risk factor profile as well as abnormal CT calcium score I think coronary angiography would be prudent. I have made him NPO pending a discussion with him about this procedure. 4. Orthostatic vital signs have been ordered. 5. He will continue his current medications. 6. Further recommendation will be made pending completion of the above evaluation. Review of Systems Review of Systems: - Review of Systems Constitutional: no symptoms reported EENTM: no symptoms reported Respiratory: see HPI Cardiac: see HPI Gastrointestinal/Abdominal: no symptoms reported Genitourinary: no symptoms Musculoskelatal: no symptoms Skin: no symptoms Neurological: no symptoms Hematologic/Lymphatic: no symptoms reported Immunologic/allergic: no symptoms reported All Other Systems: Reviewed and Negative
[2018-05-14] MEDS ORDERED: NITROGLYCERIN 0.4 MG BTL SL PRN (16:30)
[2018-05-14] MEDS ORDERED: TEMAZEPAM 15 MG CAP PO PRN (16:30)
[2018-05-14] MEDS: LEVOTHYROXINE 75 MCG TAB PO SCH (20:28)
[2018-05-14] MEDS: ASPIRIN EC 81 MG TAB PO SCH (20:33)
--- NOTE | 2018-05-14 20:46 | ASMTCMCOM ---
CM Note CM Note Notes: 05/14/2018 Case Management Note Pt admitted for junctional rhythm and a forehead laceration with a history of Parkinsons. Met w/pt, Cher [phone] and daughter Theresa [phone]. Daughter Mindy is local and can be reached at [phone]. All three households live within 5 blocks of each other. PT is recommending outpatient rehab. There are no other case management d/c needs identified. Case Management d/c poc: home with family support and follow up as directed. Case Management available if needs change. Date Signed: 05/14/2018 04:07 PM Electronically Signed By:Rachael Barnhart RN
--- NOTE | 2018-05-14 20:51 | NEUROPROG ---
Assessment: [id number] - Neurology Consult: - CC: Parkinsons Disease patient with syncope - HPI: 05/14/18: Pt has parkinsons disease (followed by [facility]) on Sinemet. He denied any autonomic dysfunction from this condition. Pt had fall on 05/13/18 and struck his head. He cannot recall the reason he fell so it may have been a syncope. He had no witnessed seizure activity and no significant post-ictal confusion. No history of syncope. Pt does have parkinsons disease. His daughter did report some transient lightheaded spells in the preceding week. His parkinsons disease medications have been stable and not recently changed. Pt [facility] that day. Head CT showed no acute changes. Cardiology saw and did note an arrhythmia that may have caused his syncope but they would like neurology input to see if the patient possibly had a seizure or dysautonomia from parkinsons disease. Neurologic exam on 05/14/18 showed ?. The patients history is most consistent with syncope. His amnesia around the event could be from a concussion he suffered during his fall. However, atypical seizure or dysautonomia is possible although less likely. Recommend patient continue current PD meds but f/u with his neurology provider after hospital discharge to consider EEG and testing for dysautonomia. No further neurologic w/u needed, neurology will sign off. 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 Oriented x person/place/date . concentration appears normal . speech fluency/comprehension normal . memory appears normal . fund of knowledge appear intact - Cranial Nerves: . II: PERRL, VFFTC . III/IV/: EOMI, no nystagmus, normal smooth pursuits, no Ptosis . V: facial sensation intact to LT . VII: face symmetric to eye closure and smile . VIII: hearing intact to conversation . IX/X: uvula raises symmetrically . XI: SCM 5/5 B/L strength . XII: tongue protrudes midline w/nl strength - Motor: . Tone: normal tone in all 4 extremity . Strength: no pronator drift, strength 5/5 throughout (B/L delt, bic, tri, hand integrity director, hf/he, df/pf) - Reflexes: B/L bic 2/4 - Sensory: all 4 extremity intact to light touch - Coord: [id number] wnl, ELENI wnl, ghla-[id number] wnl - Gait: deferred - Labs: 05/14/18- Na 139 - Rads: 05/13/18- Head CT: No acute intracranial process or cervical spine fracture/ subluxation. Age-appropriate generalized cerebral Loss with sequela of chronic microvascular ischemic disease. Moderate degenerative spondylosis of the upper to mid cervical spine. ( I personally visualized the images on 05/14/18) 05/14/18- Brain MRI and MRA: no acute findings, atrophy with ventriculomegaly consistent with age related atrophy - Assessment: 1. Fall with loss of memory on 05/13/18: History and clinical situation most consistent with probable syncope (pt reported 2-3 episodes in last few weeks of lightheadedness) and resulting head injury in fall that could cause concussion to explain memory loss around event. Agree with cardiology evaluation. However , atypical seizure or dysautonomia is possible although less likely. Recommend patient continue current PD meds but f/u with his neurology provider after hospital discharge to consider EEG and testing for dysautonomia. No further neurologic w/u needed, neurology will sign off. - Plan: - Continue current PD medications - F/U with his neurologist after discharge to consider EEG and autonomic testing for suspected syncope - No further neurologic w/u needed, neurology will sign off Objective: Vital Signs Temp Pulse Resp BP Pulse Ox 36.6 C 56 L 14 125/71 H 97 05/14/18 20:00 05/14/18 20:00 05/14/18 20:00 05/14/18 20:00 05/14/18 20:00 Laboratory Results 05/14/18 03:15 05/14/18 03:15 05/13/18 05/14/18 05/15/18 05:59 05:59 05:59 Intake Total 150 493 Balance 150 493 PT 14.0 SEC (12.0-15.0) 05/13/18 16:28 INR 1.06 (0.83-1.16) 05/13/18 16:28 Allergies/Adverse Reactions: No Known Allergies Allergy (Unverified 10/20/15 19:32)
--- NOTE | 2018-05-14 20:56 | CPEKG ---
Test Reason : OPEN Blood Pressure : / mmHG Vent. Rate : 058 BPM Atrial Rate : 058 BPM P-R Int : 126 ms QRS Dur : 094 ms QT Int : 450 ms P-R-T Axes : -65 -05 032 degrees QTc Int : 443 ms Sinus or ectopic atrial rhythm Compared with 05/13/2018 change in rhythm and QRS morphology Confirmed by Zora Harp ([id number]) on 05/14/2018 8:56:05 PM Referred By: Abhishek Bailey Confirmed By:Zora Harp
[2018-05-15] MEDS: COLESTIPOL HCL 1 GM TAB PO SCH ×2 (00:02→11:38)
[2018-05-15] MEDS: NIACIN ER 1000 MG TAB.ER PO SCH (00:03)
[2018-05-15 04:35] LABS: INR 1.16 (0.83-1.16)
[2018-05-15] MEDS ORDERED: diphenhydrAMINE 25 MG CAP PO ONE (06:00)
[2018-05-15] MEDS ORDERED: FAMOTIDINE 20 MG TAB PO ONE (06:00)
[2018-05-15] MEDS ORDERED: ASPIRIN EC 325 MG TAB PO ONE ×2 (06:00→09:06)
[2018-05-15] MEDS ORDERED: DIAZEPAM 5 MG TAB PO ONE (06:00)
[2018-05-15] MEDS ORDERED: LIDOCAINE 1% 300 MG/30 ML SDV ONE (09:00)
[2018-05-15] MEDS ORDERED: fentaNYL 100 MCG/2 ML INJ ONE (09:00)
[2018-05-15] MEDS ORDERED: IOPAMIDOL (ISOVUE 370) 100 ML BTL IV ONE (09:00)
[2018-05-15] MEDS ORDERED: MIDAZOLAM 2 MG/2 ML VIAL ONE (09:00)
[2018-05-15] MEDS ORDERED: FAMOTIDINE 20 MG TAB ONE (09:06)
--- NOTE | 2018-05-15 09:28 | PDPROPOC ---
Sedation Plan of Care Sedation Plan of Care: vital signs stable, mental status noted, patient educated of risks, benefits, alternatives, patient can tolerate sedation ASA Classification: ASA 2 Planned drugs: fentanyl, midazolam Mallampati Score: Class 2 Mallampati Reference Image: Patient passed 3-3-2 rule?: Yes
--- NOTE | 2018-05-15 09:43 | PDCARPN ---
Cardiology Progress Note Assessment/Plan: Assessment: Syncope CAD via calcium score Plan: [facility] today 05/15/18 09:43 Subjective: Mr. Herron is feeling well this AM. Tele demonstrates intermittant AIVCD. No further syncope. Plan for [facility] this AM. risk and benefits discussed with pt and family in detail Reviewed/Discussed With: family Objective: Vital Signs (8 Hrs) Temp Pulse Resp BP Pulse Ox 05/15/18 07:37 36.7 C 69 16 118/69 90 L 05/15/18 04:00 36.3 C 58 L 16 128/74 H 94 Intake/Output (24 Hrs) 05/14/18 05/15/18 05/16/18 05:59 05:59 05:59 Intake Total 150 793 Balance 150 793 Intake: Oral (ml) 150 500 IV Infused (ml) 293 NS W/ 20 KCl/L 1,000 ml @ 293 75 mls/hr IV CONT ADELIA Rx #:[id number] Other: Weight 82.5 kg Number of Voids Toilet 2 1 Result Diagrams: 05/14/18 03:15 05/14/18 03:15 Cardiac Labs: Cardiac Lab Results (72 Hrs) 05/14/18 19:13 Troponin I < 0.012 - Physical Exam Constitutional: other (Left sided head lac with sutures. no oozing ) Ears, Nose, Mouth, Throat: moist mucous membranes Cardiovascular: regular rate and rhythm Respiratory: clear to auscultate bilat Neurologic: AAOx3, CN II-XII grossly intact Psychiatric: cooperative, interactive, following commands ICD10 Worksheet Patient Problems: Problems Problem Status Onset Forehead laceration Acute Junctional cardiac arrhythmia Acute Cellulitis Acute
[2018-05-15] MEDS ORDERED: ATROPINE SULFATE 1 MG/10 ML SYR IVP PRN (10:33)
[2018-05-15] MEDS: CARBIDOPA/LEVODOPA 25 MG/100 MG TAB PO SCH ×3 (11:53→17:05)
--- NOTE | 2018-05-15 12:17 | SOAPPROG ---
SOAP Progress Note Assessment/Plan: Assessment: Syncope vs Fall. Plan: Agree with plan from Cardiology regarding observation in [facility]opital until Thursday and then home wiht a monitor on Thursday unless monitor here demonstrates etiology. 05/15/18 12:16 Subjective: Doing well. Thinking is clear. No chest pain or SOB Objective: Vital Signs Temp Pulse Resp BP Pulse Ox 97.6 F 59 L 20 134/74 H 97 05/15/18 12:00 05/15/18 12:00 05/15/18 12:00 05/15/18 12:00 05/15/18 12:00 Laboratory Results 05/14/18 03:15 05/14/18 03:15 05/14/18 05/15/18 05/16/18 05:59 05:59 05:59 Intake Total 150 793 300 Balance 150 793 300 PT 15.0 SEC (12.0-15.0) 05/15/18 03:20 INR 1.16 (0.83-1.16) 05/15/18 03:20 Coronary angiogram looks good. Lungs clear COR RRR. monitor shows sinus rhythm. ICD10 Worksheet Patient Problems: Problems Problem Status Onset Forehead laceration Acute Junctional cardiac arrhythmia Acute Cellulitis Acute
[2018-05-15] MEDS: CYANO/VITAMIN B12 1000 MCG TAB PO SCH (13:07)
[2018-05-15] MEDS: PRESERVISION AREDS2 FORMULA EYE VIT 1 EACH PO SCH (13:07)
[2018-05-15] MEDS: ASPIRIN EC 81 MG TAB PO SCH ×2 (13:08→19:19)
[2018-05-15] MEDS: EZETIMIBE 10 MG TAB PO SCH (13:08)
--- NOTE | 2018-05-15 15:49 | CPIP ---
DATE OF PROCEDURE: 05/13/2018 INDICATION FOR PROCEDURE: Non-prodromal syncope with new onset of accelerated idioventricular rhythm , coupled with known coronary disease based on calcium score. PROCEDURE PERFORMED: 1. Left heart catheterization. 2. Right coronary angiography. 3. Left coronary angiography. 4. Left ventriculogram. 5. Right common femoral artery angiography. 6. Angio-Seal deployment. DESCRIPTION OF PROCEDURE: After informed consent was obtained for both left heart catheterization an d potential intervention, the patient was brought to the cardiac catheterization lab where he was pre pped and draped in a sterile fashion. Using 1% lidocaine the right groin was anesthetized. Using the micropuncture modified Seldinger technique, 6-Swazi catheter was placed into the right com mon femoral artery without complications. A JL4 catheter was used to take images of the left coronar y anatomy. A JL4 catheter was exchanged over a guidewire for a JR4 catheter. JR4 catheter was used to take images of the right coronary anatomy in multiple projections. JR4 catheter was exchanged ove r a guidewire for an angled pigtail catheter. Angled pigtail catheter was used to cross the aortic v alve. LVEDP was assessed. Left ventriculogram was performed. Angled pigtail catheter was removed o wanda a guidewire without complications. Imaging of the right common femoral artery demonstrated appro priate placement of the 6-Swazi sheath below the inguinal ligament and above the bifurcation of the common femoral artery. Angio-Seal was deployed successfully. There were no postoperative complicati ons. FINDINGS: 1. Left main. Is short with no evidence of coronary disease. Left coronary anatomy almost has sepa rate ostia. 2. Left anterior descending artery. Is a large caliber artery with multiple diagonal branches, all small in size. There are mild luminal irregularities within the proximal portion of the left anterio r descending with no evidence of flow-limiting coronary disease. 3. Circumflex vessel. Again is a large caliber vessel. There are some mild luminal irregularities within the midportion of the circumflex with no evidence of flow-limiting coronary disease. 4. Right coronary artery. Is a dominant vessel with a PDA and PLV branch. Some mild luminal irregu larities within the proximal segment of the vessel with no evidence of flow-limiting coronary disease . HEMODYNAMICS: 1. LVEDP elevated at 24 mmHg. Left ventricular function normal with EF 65% to 70%. Aortic valve gr adient, none. 2. Right common femoral artery site appropriate for seal. CONCLUSION: Mild luminal irregularities with no evidence of flow-limiting coronary disease. Normal left ventricular function. Elevated LVEDP at 24 mmHg. /[id number]/MODL
[2018-05-15] MEDS: LEVOTHYROXINE 75 MCG TAB PO SCH (19:18)
[2018-05-16] MEDS: NIACIN ER 1000 MG TAB.ER PO SCH ×2 (00:16→20:57)
[2018-05-16] MEDS: COLESTIPOL HCL 1 GM TAB PO SCH ×3 (00:16→20:58)
[2018-05-16] MEDS: CARBIDOPA/LEVODOPA 25 MG/100 MG TAB PO SCH ×3 (06:39→19:38)
[2018-05-16] MEDS: CYANO/VITAMIN B12 1000 MCG TAB PO SCH (09:10)
[2018-05-16] MEDS: PRESERVISION AREDS2 FORMULA EYE VIT 1 EACH PO SCH (09:10)
[2018-05-16] MEDS: EZETIMIBE 10 MG TAB PO SCH (09:10)
--- NOTE | 2018-05-16 09:16 | SOAPPROG ---
SOAP Progress Note Assessment/Plan: Assessment: Syncope vs Fall. description from a witness seems to comfirm that it was syncope rather than just a fall. Plan: Agree with plan from Cardiology regarding observation in [facility]opital until Thursday and then home wiht a monitor on Thursday unless monitor here demonstrates etiology. Ambulate today. Will DC IV as it no longer flushes and it is very unlikely that we will need intravenous access for anything over the next 24 hours. 05/15/18 12:16 05/16/18 09:14 Subjective: Feels good, slept well last night. Objective: Vital Signs Temp Pulse Resp BP Pulse Ox 97.8 F 62 16 126/76 H 94 05/16/18 07:17 05/16/18 07:17 05/16/18 07:17 05/16/18 07:17 05/16/18 07:17 Laboratory Results 05/14/18 03:15 05/14/18 03:15 05/15/18 05/16/18 05/17/18 05:59 05:59 05:59 Intake Total 793 1090 Output Total 150 Balance 793 940 PT 15.0 SEC (12.0-15.0) 05/15/18 03:20 INR 1.16 (0.83-1.16) 05/15/18 03:20 Alert , oriented and appropriate. Lungs clear COR RRR. MOnitor demonstrates no significant arrhythmia since the angiogram. ICD10 Worksheet Patient Problems: Problems Problem Status Onset Forehead laceration Acute Junctional cardiac arrhythmia Acute Cellulitis Acute
--- NOTE | 2018-05-16 10:18 | PDCARPN ---
Cardiology Progress Note Assessment/Plan: Assessment: -Syncope resulting in trauma with head laceration (witness syncope at [employer]) -CAD based on calcium score (mild luminal irregularities on [facility] yesterday) -Acclerated Idioventricular Rhythm (asymptomatic) Plan: continue telemetry monitoring Zio patch tomorrow Discussed with family in detail ways to reduce risk of trauma to syncope: -NO Driving -No ladders -No swimming, hot tub or baths -family plans to consider electric stair elevator for stairs at home Subjective: Mr. eHrron is feeling well this morning. No new episodes of syncope. Right groin site is non tender. LHC yesterday demonstrated mild luminal irregularities with no flow limiting CAD. LVEF 60-65%. He did develop accelerated Idioventricular Rhythm with pig tail catheter in LV. No pauses. I have reviewed all telemetry strips since admission, no pauses, no SVT. Brief runs of acclerated Idioventricular rhythm noted, primarily on day of admission. He has non compliants of palpitations, dizziness, lightheadedness or syncope. Reviewed/Discussed With: family, hospitalist Time Spent with Patient: greater than 25 minutes Time Spent with Patient: Greater than 25 minutes spent on this patients care, greater than 50% of time spent counseling, educating, and coordinating care regarding the above mentioned plan. Objective: Vital Signs (8 Hrs) Temp Pulse Resp BP Pulse Ox 05/16/18 07:17 36.6 C 62 16 126/76 H 94 05/16/18 04:00 36.7 C 52 L 17 134/81 H 97 Intake/Output (24 Hrs) 05/15/18 05/16/18 05/17/18 05:59 05:59 05:59 Intake Total 793 1090 Output Total 150 Balance 793 940 Intake: Oral (ml) 500 590 IV Intake (ml) 500 IV Infused (ml) 293 NS W/ 20 KCl/L 1,000 ml @ 293 75 mls/hr IV CONT ADELIA Rx #:[id number] Output: Urine (ml) 150 Urinal 150 Other: Number of Voids Toilet 1 1 Urinal 1 Result Diagrams: 05/14/18 03:15 05/14/18 03:15 Cardiac Labs: Cardiac Lab Results (72 Hrs) 05/14/18 19:13 Troponin I < 0.012 - Physical Exam Constitutional: other (Left sided head laceration healing well. Sutures in place. ) Neurologic: AAOx3, CN II-XII grossly intact Psychiatric: cooperative, interactive, following commands ICD10 Worksheet Patient Problems: Problems Problem Status Onset Forehead laceration Acute Junctional cardiac arrhythmia Acute Cellulitis Acute
[2018-05-16] MEDS: ASPIRIN EC 81 MG TAB PO SCH (20:57)
[2018-05-16] MEDS: LEVOTHYROXINE 75 MCG TAB PO SCH (20:58)
[2018-05-17] MEDS: CARBIDOPA/LEVODOPA 25 MG/100 MG TAB PO SCH ×2 (04:43→11:28)
[2018-05-17] MEDS: CYANO/VITAMIN B12 1000 MCG TAB PO SCH (08:16)
[2018-05-17] MEDS: EZETIMIBE 10 MG TAB PO SCH (08:16)
[2018-05-17] MEDS: PRESERVISION AREDS2 FORMULA EYE VIT 1 EACH PO SCH (08:16)
[2018-05-17] MEDS: COLESTIPOL HCL 1 GM TAB PO SCH (09:17)
--- NOTE | 2018-05-17 09:23 | SOAPPROG ---
SOAP Progress Note Assessment/Plan: Assessment: 83 yo male with syncopal episode resulting in a fall and L head lac. Plan: Syncope and fall - plan for Zio patch for rhythm monitoring and f/u as outpt. CAD- elevated calcium score by EBT heart scan, [facility] yesterday with mild luminal irregularities but without need for intervention at this time, no e/o ACS at this time Dispo- anticipate d/c today after cardiology sees him and okay's this as well. F /u in the office 05/17/18 09:20 Subjective: Sarthak is resting in the chair this morning. Overall he says he feels well. Denies chest pain, palpitations, dizziness, lightheadedness. No further syncopal episodes. Eager to discharge. Objective: Vital Signs Temp Pulse Resp BP Pulse Ox 36.6 C 57 L 18 105/66 99 05/17/18 07:22 05/17/18 07:22 05/17/18 07:22 05/17/18 07:22 05/17/18 07:22 Laboratory Results 05/14/18 03:15 05/14/18 03:15 05/16/18 05/17/18 05/18/18 05:59 05:59 05:59 Intake Total 1090 500 Output Total 150 Balance 940 500 PT 15.0 SEC (12.0-15.0) 05/15/18 03:20 INR 1.16 (0.83-1.16) 05/15/18 03:20 Gen- alert, oriented, vitals stable Head- L forehead with 4cm laceration which is scabbing nicely Resp- LCTAB, no wheezing, rhonchi, rales CV- S1S2, RRR, no murmurs, rubs, gallops Abd- SNT, nondistended, + BS Extremities- no peripheral edema ICD10 Worksheet Patient Problems: Problems Problem Status Onset Forehead laceration Acute Junctional cardiac arrhythmia Acute Cellulitis Acute
[2018-05-17 12:01] VITALS: BP 111/67
--- NOTE | 2018-05-17 13:09 | PDIAF ---
- Diagnosis Code Status: Full Code - Medication Management Discharge Medications: electronically signed and located in the Home Medication List. - Orders Diet Recommendation: no restrictions on diet Diet Texture: Regular Texture Diet Additional Instructions: Have your external sutures removed (in 10 days) on May 24. - Follow Up Care Current Providers and Referrals: Patient,NotPresent [Primary Care Provider] - As per Instructions
--- NOTE | 2018-05-17 13:15 | PDCARCONS ---
Cardiology Consult Reason for Consult: Syncope Chief Complaint: Syncope Requesting Physician: Dr. Claudio Aldana, Dr. Oli Whitten History of Present Illness: 83-year-old male who presented with syncope on . I was asked to visit with him by Dr. Claudio Aldana after his coronary angiogram on Thursday. His case was discussed with Dr. Whitten on Thursday. He was shopping at [employer] when he had syncope without warning. He had 3 prior episodes of presyncope. He was noted to have idioventricular rhythm at 68 beats per minute on presentation which was asymptomatic. He has normal LV ejection fraction. He had coronary angiography which did not show any significant coronary disease. History Information - Allergies/Home Medication List Allergies/Adverse Reactions: No Known Allergies Allergy (Unverified 10/20/15 19:32) Home Medications: Aspirin EC [Aspirin EC 81 mg (*)] 81 mg PO HS 10/20/15 [Last Taken 05/12/18] Colestipol HCl [Colestid (*)] 2 gm PO BID 10/20/15 [Last Taken 05/13/18 09:00] Ezetimibe [Zetia 10 MG (*)] 10 mg PO DAILY 10/20/15 [Last Taken 05/13/18] Levothyroxine [Synthroid 75 mcg (*)] 75 mcg PO HS 10/20/15 [Last Taken 05/12/18] Niacin ER [Niaspan 1000 mg (*)] 2,000 mg PO HS 10/20/15 [Last Taken 05/12/18] Elbert-3 Fatty Acids [Fish Oil 1000 mg (*)] 2,000 mg PO BID 10/20/15 [Last Taken 05/13/18 09:00] C/E/Zn/Cu/OM3/DHA/EPA/LUT/ZEAX [Preservision Areds 2 Softgel] 2 each PO DAILY [Last Taken 05/13/18] Carbidopa/Levodopa [Carbidopa-Levodopa 25-100 Tab] 1.5 each PO TID@0630,12,1730 05/13/18 [Last Taken 05/13/18 12:00] Cyanocobalamin [Vitamin B12 (*)] 1,000 mcg PO DAILY 05/13/18 [Last Taken ] Past Medical History: - Social History Smoking Status: Former smoker Alcohol Use: None Drug Use: None Physical Exam Physical Exam: Temp Pulse Resp BP Pulse Ox 36.7 C 54 L 18 111/67 96 05/17/18 12:00 05/17/18 12:00 05/17/18 12:00 05/17/18 12:00 05/17/18 12:00 Constitutional: no apparent distress, appears nourished Eyes: PERRL, EOMI Ears, Nose, Mouth, Throat: moist mucous membranes, hearing normal Cardiovascular: regular rate and rhythym, no murmur, rub, or gallop Respiratory: no respiratory distress Gastrointestinal: normoactive bowel sounds Skin: warm, normal color Neurologic: AAOx3 Psychiatric: interacting appropriately, not anxious, not encephalopathic Lab and Imaging 05/14/18 03:15 05/14/18 03:15 WBC 8.94 10^3/uL (3.80-9.50) 05/14/18 03:15 RBC 4.38 10^6/uL (4.40-6.38) L 05/14/18 03:15 Hgb 14.2 g/dL (13.7-17.5) 05/14/18 03:15 Hct 41.2 % (40.0-51.0) 05/14/18 03:15 MCV 94.1 fL (81.5-99.8) 05/14/18 03:15 MCH 32.4 pg (27.9-34.1) 05/14/18 03:15 MCHC 34.5 g/dL (32.4-36.7) 05/14/18 03:15 RDW 13.0 % (11.5-15.2) 05/14/18 03:15 Plt Count 179 10^3/uL (150-400) 05/14/18 03:15 MPV 10.1 fL (8.7-11.7) 05/14/18 03:15 Neut % (Auto) 70.3 % (39.3-74.2) 05/14/18 03:15 Lymph % (Auto) 15.4 % (15.0-45.0) 05/14/18 03:15 [place] % (Auto) 10.6 % (4.5-13.0) 05/14/18 03:15 Eos % (Auto) 2.9 % (0.6-7.6) 05/14/18 03:15 Baso % (Auto) 0.6 % (0.3-1.7) 05/14/18 03:15 Nucleat RBC Rel Count 0.0 % (0.0-0.2) 05/14/18 03:15 Absolute Neuts (auto) 6.28 10^3/uL (1.70-6.50) 05/14/18 03:15 Absolute Lymphs (auto) 1.38 10^3/uL (1.00-3.00) 05/14/18 03:15 Absolute Monos (auto) 0.95 10^3/uL (0.30-0.80) H 05/14/18 03:15 Absolute Eos (auto) 0.26 10^3/uL (0.03-0.40) 05/14/18 03:15 Absolute Basos (auto) 0.05 10^3/uL (0.02-0.10) 05/14/18 03:15 Absolute Nucleated RBC 0.00 10^3/uL (0-0.01) 05/14/18 03:15 Immature Gran % 0.2 % (0.0-1.1) 05/14/18 03:15 Immature Gran # 0.02 10^3/uL (0.00-0.10) 05/14/18 03:15 PT 15.0 SEC (12.0-15.0) 05/15/18 03:20 INR 1.16 (0.83-1.16) 05/15/18 03:20 APTT 29.3 SEC (23.0-38.0) 05/15/18 03:20 Sodium 139 mEq/L (135-145) 05/14/18 03:15 Potassium 4.2 mEq/L (3.5-5.2) 05/14/18 03:15 Chloride 108 mEq/L (97-110) 05/14/18 03:15 Carbon Dioxide 26 mEq/l (22-31) 05/14/18 03:15 Anion Gap 5 mEq/L (6-14) L 05/14/18 03:15 BUN 15 mg/dL (7-23) 05/14/18 03:15 Creatinine 0.9 mg/dL (0.7-1.3) 05/14/18 03:15 Estimated GFR > 60 05/14/18 03:15 Glucose 94 mg/dL (70-100) 05/14/18 03:15 Calcium 8.8 mg/dL (8.5-10.4) 05/14/18 03:15 Magnesium 1.6 mg/dL (1.6-2.3) 05/13/18 18:37 POC Troponin I 0.00 ng/mL (0.00-0.08) 05/13/18 16:33 Troponin I < 0.012 ng/mL (0.000-0.034) 05/14/18 19:13 NT-Pro-B Natriuret Pep 323 pg/mL (0-450) 05/13/18 18:37 TSH 3.950 uIU/mL (0.465-4.680) 05/13/18 16:30 Free T4 1.33 ng/dL (0.59-2.19) 05/13/18 16:30 Free T3 3.57 pg/mL (2.77-5.27) 05/13/18 16:30 Ethyl Alcohol < 10 mg/dL (0-10) 05/13/18 16:28 EKG additional interpertation: Accelerated idioventricular rhythm at 68 beats per minute Telemetry: Sinus rhythm, PVC couplets, PACs A/P Assessment: Syncope Accelerated idioventricular rhythm 68 beats per minute, asymptomatic Normal coronary angiography Normal LV ejection fraction Plan: 83-year-old fairly active main with 1 episode of syncope and 3 episodes of presyncope. LV ejection fraction is normal. Coronary angiography does not show any significant coronary artery disease. Patient did not have any symptoms during episodes of accelerated idioventricular rhythm at 68 beats per minute. Etiology of syncope is unclear. I have recommended following options: 1. Electrophysiology study. If EP study is negative, implantation of LINQ monitor. If EP study suggests bradycardia as etiology, implantation of pacemaker, if it suggests ventricular tachycardia, implantation of defibrillator. This is the most aggressive approach, as highest likelihood of providing a diagnosis, we discussed that with normal EF and normal coronary angiography, likely would of inducible ventricular tachycardia is probably less than 10%. Risks of transvenous pacemaker/defibrillator implantation including but not limited to , myocardial infarction, stroke, cardiac tamponade which may require emergent cardiac surgery, infection, bleeding, pneumothorax, lead dislodgement and risks of sedation/anesthesia were discussed. Long-term issues like pacemaker pocket erosion, lead failure, venous stenosis, superior vena cava syndrome, need for lead extraction were discussed. Need for close long- term follow-up in our device clinic was emphasized. Need for generator change was discussed. Risks and benefits of EPS/ablation including but not limited to risks of , myocardial infarction, stroke, tamponade which may require emergent cardiac surgery, AV block requiring implantation of a permanent pacemaker, vascular access complications which may require surgery, deep venous thrombosis, pulmonary embolism, infection, risks associated with sedation/ anesthesia were discussed with the patient. 2. Implantation of LINQ monitor only 3. ZIO monitor He understands that if he opts for monitoring only, if he has a life- threatening arrhythmia, it could record a terminal arrhythmia . He is not sure he wants an EP study This was discussed with his , son and daughter. This was a complex discussion with the patient due to need for review of records , discussion of pathophysiology of disease and discussion regarding multiple treatment modalities. I spent 45 minutes with the patient, more than 50% of which was spent in counseling.
--- NOTE | 2018-05-17 14:18 | GDS ---
HISTORY OF PRESENT ILLNESS: The patient is an 83-year-old male who was shopping at [employer] and had an observed syncopal episode where he hit his head. He was brought into the emergency department for further evaluation. He on arrival did not have any neuro deficits, no trouble with movement of extremities, no speech changes, vision changes. He does have a history of Parkinson's disease and co ronary artery disease. He was evaluated by Neurology who concluded that this was likely a syncopal e pisode and recommended outpatient followup with patient's primary neurologist with possible EEG or wo rkup for autonomia, but no further workup needed by Neurology at this time as an inpatient. The shan ent was also seen by Cardiology who did a left heart catheterization which showed mild luminal irregu larities, but did not require any intervention. The patient experienced some accelerated idioventric ular rhythm during the heart catheterization, but was overall asymptomatic and has since resolved. T he plan from Cardiology perspective will be to discharge him with a Zio patch for ongoing cardiac mon itoring with outpatient followup and also to try and symptomatically prevent further syncopal episode s. Other workup while in the hospital: MRA of the head was grossly negative. Brain MRI showed underlyi ng atrophy, ventriculomegaly, and white matter disease changes compatible with age, but no acute abno rmalities. MRI of the C-spine showed multilevel cervical degenerative disk disease, but no acute abn ormalities. Echocardiogram showed an ejection fraction of 57%, mild mitral valve regurgitation, aort ic sclerosis, but no aortic valve regurgitation or stenosis, moderate tricuspid regurgitation. PLAN: Discharge the patient back home with the Zio patch for ongoing monitoring and followup with Ca rdiology, the patient's primary neurologist, and the primary care provider in the office. DISCHARGE MEDICATIONS: [place]-3 fatty acids 2000 mg p.o. twice daily, colestipol 2 g p.o. twice daily , niacin 2000 mg p.o. at bedtime, Zetia 10 mg p.o. daily, levothyroxine 75 mcg p.o. at bedtime, aspir in 81 mg p.o. at bedtime, vitamin B12 1000 mcg p.o. daily, carbidopa levodopa 25/100 1-1/2 tablets p. o. t.i.d., PreserVision soft gels 2 tablets p.o. daily. /[id number]/MODL
--- NOTE | 2018-05-17 14:31 | ASMTLACE ---
GEOR[place]E Length of stay for Answers: 3 days current admission Acuity / Level of Answers: Yes Care: Did the patient have an inpatient admission? # of Emergency department Answers: 1-2 visits in the last 6 months Score: 7 Date Signed: 05/17/2018 02:31 PM Electronically Signed By:Rachael Barnhart RN
--- NOTE | 2018-05-17 14:35 | ASDISCHSUM ---
Discharge Information Plan Status:Home with No Needs Medically Cleared to Leave:05/16/2018 Discharge Date:05/16/2018 CM D/C Disposition:Home, Routine, Self-Care ADT D/C Disposition:Home, Routine, Self-Care Projected Discharge Date:05/16/2018 Transportation at D/C:Family Discharge Delay Reason: Follow-Up Date:05/16/2018 Discharge Slot: Final Diagnosis: Placement Information Patient Contact Information Contact Name:CESARORGAN Relationship: Address:[address] [place] [address] City:[place] Alternate Phone: [facility]/Zip Code:[place] [address] Email: Financial Information Financial Class:Medicare Primary Plan Desc:MEDICARE INPATIENT Primary Plan Number:[id number] Secondary Plan Desc:[facility] Secondary Plan Number:[id number] Assessment Information LACE LACE Length of stay for Answers: 3 days current admission Acuity / Level of Answers: Yes Care: Did the patient have an inpatient admission? # of Emergency department Answers: 1-2 visits in the last 6 months Score: 7 Date Signed: 05/17/2018 02:31 PM Electronically Signed By:Rachael Barnhart RN [facility] CM Progress Note CM Note CM Note Notes: 05/14/2018 Case Management Note Pt admitted for junctional rhythm and a forehead laceration with a history of Parkinsons. Met w/pt, Cher [phone] and daughter Theresa [phone]. Daughter Mindy is local and can be reached at [phone]. All three households live within 5 blocks of each other. PT is recommending outpatient rehab. There are no other case management d/c needs identified. Case Management d/c poc: home with family support and follow up as directed. Case Management available if needs change. Date Signed: 05/14/2018 04:07 PM Electronically Signed By:Rachael Barnhart RN Case Management Discharge Plan Note Case Management Discharge Discharge Order Complete? Answers: Yes Patient to Obtain Answers: via Family Medications Transportation Arranged Answers: Family/Friends Family Notified Answers: Yes Notes: in room Discharge Comments Notes: 05/17/2018 Case Management Note Pt to discharge home with family support and follow up as directed. Date Signed: 05/17/2018 02:33 PM Electronically Signed By:Rachael Barnhart RN Intervention Information Intervention Type:*Incorrect Registration Date of Service:05/14/2018 07:39 AM Patient Type:Observation Staff Member:Maribel Shepard Hours: Discipline: Severity: Comment:
== END 2018-05-17 14:48 | disposition home or self-care (01) | DRG 287 ==
LOC: EDBD → EDUNIT# → OBSVTOIN 18:40 → F2W 18:44
PROVIDERS: ADMIT Internal Medicine; ATTEND Internal Medicine
DX: R55 Syncope and collapse (principal); I49.8 Other specified cardiac arrhythmias; S01.81XA Laceration without foreign body of other part of head, initial encounter; W18.39XA Other fall on same level, initial encounter; Y93.89 Activity, other specified; Y92.512 Supermarket, store or market as the place of occurrence of the external cause; Y99.8 Other external cause status; G20 Parkinson's disease; E78.5 Hyperlipidemia, unspecified; E03.9 Hypothyroidism, unspecified; I71.4 Abdominal aortic aneurysm, without rupture; K57.90 Diverticulosis of intestine, part unspecified, without perforation or abscess without bleeding; Z87.891 Personal history of nicotine dependence; Z85.46 Personal history of malignant neoplasm of prostate; Z96.651 Presence of right artificial knee joint
CPT/HCPCS: 84481-90; 84484-ER; 92523-GN; 97110-GP; 97162-GP; 97165-GO; 97530-GP; C1760; G0390; G0480; J1644; J2250; J3010; Q9967

== ENCOUNTER 2018-06-11 08:33 | Day surgery (SDC) | payer OTHER ==
[2018-06-11] MEDS ORDERED: LIDOCAINE 1% 300 MG/30 ML SDV SC ONE (08:36)
--- NOTE | 2018-06-11 10:25 | PDHPUP ---
History & Physical Update H&P update statement: This history and physical update is based on an assessment of the patient which was completed after admission or registration (within 24 hours), but prior to the surgery/procedure. Pt here for LINQ implant in the setting of syncope resulting in trauma. No arrhythmia detected on monitor H&P update: H&P reviewed & patient examined, no change in patient's condition since H&P completed
--- NOTE | 2018-06-11 12:34 | CPIP ---
[f rep st] INVASIVE CARDIAC PROCEDURE DATE OF PROCEDURE: 06/11/2018 PROCEDURE PERFORMED: Medtronic implantable loop recorder. INDICATION FOR PROCEDURE: History of non prodromal syncope resulting in sudden loss of consciousness and left-sided facial trauma requiring multiple sutures. External monitoring did not demonstrate an y etiology to explain his syncopal episode. He also has no memory of the events surrounding his sync ope. DESCRIPTION OF PROCEDURE: After informed consent was obtained, patient was brought to the [facility]. He w as prepped and draped in sterile fashion. The 5th intercostal space 2 cm from midline was identified . After appropriate level of local anesthesia was applied with 1% lidocaine, incision was made with scalpel blade provided in the tool kit. This was modified with a #5 blade. A tract was made under t he skin approximately 2 mm with the Medtronic tool. Device was then inserted under the skin without difficulty. Hemostasis was achieved. Steri-Strips were applied. The patient tolerated the procedur e well without complications. The device was interrogated, demonstrating normal device function. PLAN: Patient will follow up in the office in 1 week for wound and device check. /[id number]/MODL
== END 2018-06-11 10:30 | disposition home or self-care (01) ==
LOC: FCATH 08:33
PROVIDERS: ATTEND Internal Medicine Cardiovascular Disease
PROC: 0JH602Z Insertion of Monitoring Device into Chest Subcutaneous Tissue and Fascia, Open Approach (ICD-10-PCS; principal; 2018-06-11)
DX: R55 Syncope and collapse (principal); Z91.81 History of falling; G20 Parkinson's disease
CPT/HCPCS: C1764